=== PATIENT | male | born 1985 ===

== ENCOUNTER 2019-11-12 12:20 | Outpatient (CLI) | payer OTHER ==
--- NOTE | 2019-11-12 16:00 | Consultation ---
DATE OF CONSULTATION: 11/12/2019 CHIEF COMPLAINT: Abdominal pain. PAST MEDICAL HISTORY: H. pylori infection status post treatment. PAST SURGICAL HISTORY: None. MEDICATIONS: See medication reconciliation list. FAMILY HISTORY: Mother had breast cancer. SOCIAL HISTORY: The patient denies any tobacco, alcohol, or drug abuse. REVIEW OF SYSTEMS: Positive for left lower quadrant abdominal pain for which he had workup of CT and ultrasound which has been negative. PHYSICAL EXAMINATION: VITAL SIGNS: Temperature 98.1, blood pressure 142/99, pulse 97, respirations 20. HEENT: Normocephalic and atraumatic. Sclerae anicteric. NECK: Supple. No evidence of obvious lymphadenopathy. CARDIOVASCULAR: Regular rate and rhythm. Plus S1 and S2. LUNGS: Clear to auscultation bilaterally. ABDOMEN: Positive bowel sounds. Soft and nontender. No rebound. No guarding. No peritoneal sign. EXTREMITIES: No cyanosis. No clubbing. No edema. ASSESSMENT AND PLAN: The patient is a 34-year-old male with chronic left lower quadrant abdominal pain of unknown etiology. According to him, he had an ultrasound, CT, and blood work which has been negative. The patient requested that he have colonoscopy for further evaluation. Plan when authorization is obtained. Denny Day M.D. DR: Val JOB#: [id number] CC:
== END 2019-11-12 14:20 | disposition home or self-care (01) ==
LOC: PAN 12:20
DX: R10.32 Left lower quadrant pain (principal); G89.29 Other chronic pain; Z80.3 Family history of malignant neoplasm of breast
CPT/HCPCS: G0463